=== PATIENT | male | born 1995 | race Caucasian/White ===

== ENCOUNTER 2016-05-15 15:04 | Emergency (ER) | payer BC ==
[~2016-05-15] VITALS: Ht 182.9 cm; Wt 86.4 kg
[2016-05-15 15:11] VITALS: BP 142/91; TEMP 98.5
[2016-05-15] MEDS ORDERED: SILDENAFIL (15:15)
[2016-05-15] MEDS ORDERED: CLEOCIN HC150 MG/CAP PO (15:47)
[2016-05-15] MEDS ORDERED: CIPRO 500MG TA500 MG PO (15:47)
[2016-05-15 17:00] VITALS: PULSE 76
== END 2016-05-15 17:00 | disposition home or self-care (01) ==
LOC: COL.ER 15:04
DX: S41.111A Laceration without foreign body of right upper arm, initial encounter (principal); W54.0XXA Bitten by dog, initial encounter; Y92.830 Public park as the place of occurrence of the external cause; Z23 Encounter for immunization